=== PATIENT | female | born 1995 | race Caucasian/White ===

== ENCOUNTER 2017-09-02 22:29 | Emergency (ER) | payer SELFPAY ==
[~2017-09-02] VITALS: Ht 165.1 cm; Wt 100.8 kg
[~2017-09-02 22:29] MED LIST: KEFLEX500 MG PO
[2017-09-03 00:42] LABS: APPEARANCE SL.HAZY ((CLEAR)); BILIRUBIN NEGATIVE; BLOOD LARGE; COLOR YELLOW ((YELLOW)); GLUCOSE (STRIP) NEGATIVE; KETONES NEGATIVE; LEUKOCYTES TRACE; NITRITE NEGATIVE; PROTEIN (STRIP) NEGATIVE; SPECIFIC GRAVITY 1.016 (1.000-1.030); UROBILINOGEN 0.2 MG/DL (0.2-1.0)
[2017-09-03 00:44] LABS: BACTERIA RARE /HPF; EPITHELIAL CELLS 1+ /HPF; MUCUS TRACE /LPF; UCUL ADDED? NO; WHITE BLOOD CELLS 0-5 /HPF (0-5)
[2017-09-03] MEDS ORDERED: LIDOCAINE700 MG TP (01:39)
[2017-09-03] MEDS ORDERED: MOTRIN600 MG PO (01:39)
[2017-09-03] MEDS ORDERED: CIPRO500 MG PO (01:41)
[2017-09-03 01:50] VITALS: BP 127/84
== END 2017-09-03 02:55 | disposition home or self-care (01) ==
LOC: EME 22:29
PROVIDERS: Emergency Medicine
DX: N39.0 Urinary tract infection, site not specified (principal); N83.202 Unspecified ovarian cyst, left side; M54.5 Low back pain; Z88.1 Allergy status to other antibiotic agents
CPT/HCPCS: 74176; 81003; 99281; 99284

== ENCOUNTER 2017-11-18 21:06 | Emergency (ER) | payer OTHER ==
[~2017-11-18] VITALS: Ht 162.6 cm; Wt 97.6 kg
[~2017-11-18 21:06] MED LIST changes: +CIPRO500 MG PO; +LIDOCAINE700 MG TP; +MOTRIN600 MG PO
[2017-11-18 21:57] LABS: HEMATOCRIT 39.8 % (36.0-46.0); HEMOGLOBIN 13.2 G/DL (11.9-15.5); MCH 29.5 PG (29.0-34.0); MCHC 33.2 G/DL (30.0-36.0); MCV 88.8 FL (83-99); PLATELET COUNT 323 K/uL (156-360); RBC DIS.WIDTH-CV 12.3 % (11.8-14.6); RBC DIS.WIDTH-SD 40.2 % (39-53); RED BLOOD COUNT 4.48 M/uL (3.80-5.20); WHITE BLOOD COUNT 10.1 K/uL (4.1-10.2)
[2017-11-18 22:18] LABS: ALBUMIN 4.5 g/dL (3.2-4.8); CHLORIDE 107 mEq/L (99-109); SODIUM 137 mEq/L (136-147)
[2017-11-18 22:20] LABS: GLUCOSE 99 mg/dL (70-99)
[2017-11-18 22:21] LABS: TOTAL PROTEIN 7.7 g/dL (6.4-8.3)
[2017-11-18 22:22] LABS: TOTAL BILIRUBIN 0.5 mg/dL (0.0-1.0)
[2017-11-18 22:24] LABS: ALKALINE PHOSPHATASE 94 IU/L (3-129); CREATININE 0.7 mg/dL (0.6-1.3); GFR ESTIMATE (CALCULATED) > 59 mL/min/
[2017-11-18 22:25] LABS: UREA NITROGEN (BUN) 8 mg/dL (9-23)
[2017-11-18 22:26] LABS: AST (GOT) 18 IU/L (2-34)
[2017-11-18 22:27] LABS: ALT (GPT) 18 IU/L (3-49)
[2017-11-18 22:33] LABS: QUANTITATIVE HCG < 4.0 MIU/ML
[2017-11-19] MEDS ORDERED: FIORICET 50-301 EAC1 PO (05:13)
[2017-11-19] MEDS ORDERED: MECLIZINE HCL25 MG PO (05:13)
[2017-11-19 05:35] VITALS: BP 113/64
== END 2017-11-19 05:36 | disposition home or self-care (01) ==
LOC: EME 21:06
DX: R51 Headache (principal); R42 Dizziness and giddiness; R11.10 Vomiting, unspecified; M54.2 Cervicalgia; Z88.0 Allergy status to penicillin
CPT/HCPCS: 80053; 81003; 84702; 85027; 99281; 99285; J1200; J2765; J7030

== ENCOUNTER 2017-12-09 15:11 | Emergency (ER) | payer OTHER ==
[~2017-12-09] VITALS: Ht 167.6 cm; Wt 97.8 kg
[~2017-12-09 15:11] MED LIST changes: +FIORICET 50-301 EAC1 PO; +MECLIZINE HCL25 MG PO
[2017-12-09 15:44] VITALS: BP 138/72
== END 2017-12-09 17:46 | disposition home or self-care (01) ==
LOC: EME 15:11
DX: S40.012A Contusion of left shoulder, initial encounter (principal); M54.2 Cervicalgia; W10.9XXA Fall (on) (from) unspecified stairs and steps, initial encounter; Z88.0 Allergy status to penicillin
CPT/HCPCS: 72040; 73010; 73030; 99281; 99284

== ENCOUNTER 2018-01-06 21:20 | Emergency (ER) | payer OTHER ==
[~2018-01-06] VITALS: Ht 165.1 cm; Wt 100.8 kg
[2018-01-06 21:55] LABS: HEMATOCRIT 35.1 % (36.0-46.0); HEMOGLOBIN 11.7 G/DL (11.9-15.5); MCH 29.1 PG (29.0-34.0); MCHC 33.3 G/DL (30.0-36.0); MCV 87.3 FL (83-99); PLATELET COUNT 303 K/uL (156-360); RBC DIS.WIDTH-CV 13.2 % (11.8-14.6); RBC DIS.WIDTH-SD 42.2 % (39-53); RED BLOOD COUNT 4.02 M/uL (3.80-5.20); WHITE BLOOD COUNT 9.9 K/uL (4.1-10.2)
[2018-01-06 22:05] LABS: CHLORIDE 112 mEq/L (99-109); POTASSIUM 3.7 mEq/L (3.7-5.4); SODIUM 143 mEq/L (136-147)
[2018-01-06 22:06] LABS: GLUCOSE 105 mg/dL (70-99)
[2018-01-06 22:10] LABS: CREATININE 0.7 mg/dL (0.6-1.3); GFR ESTIMATE (CALCULATED) > 59 mL/min/
[2018-01-06 22:11] LABS: UREA NITROGEN (BUN) 8 mg/dL (9-23)
[2018-01-06 22:16] LABS: TROP-I INTERPRETATION NEGATIVE; TROPONIN-I < 0.01 ng/mL (0.0-0.30)
[2018-01-06 22:48] LABS: QUANTITATIVE HCG < 4.0 MIU/ML
[2018-01-06 23:33] LABS: APPEARANCE SL.HAZY ((CLEAR)); BILIRUBIN NEGATIVE; BLOOD NEGATIVE; COLOR YELLOW ((YELLOW)); GLUCOSE (STRIP) NEGATIVE; KETONES NEGATIVE; LEUKOCYTES TRACE; NITRITE NEGATIVE; PROTEIN (STRIP) NEGATIVE; SPECIFIC GRAVITY 1.015 (1.000-1.030); UROBILINOGEN 0.2 MG/DL (0.2-1.0)
[2018-01-06 23:37] LABS: BACTERIA NONE SEEN /HPF; EPITHELIAL CELLS 1+ /HPF; MUCUS TRACE /LPF; RED BLOOD CELLS 0-5 /HPF (0-5); UCUL ADDED? NO; WHITE BLOOD CELLS 0-5 /HPF (0-5)
[2018-01-07 00:14] VITALS: BP 122/70
[2018-01-07 08:04] LABS: THYROTROPIN (TSH) 4.8 MIU/L (0.4-5.5)
== END 2018-01-07 00:14 | disposition home or self-care (01) ==
LOC: EME 21:20
PROVIDERS: Physician Assistant
DX: R07.89 Other chest pain (principal); R42 Dizziness and giddiness; Z87.440 Personal history of urinary (tract) infections; Z88.0 Allergy status to penicillin
CPT/HCPCS: 71046; 80048; 81003; 84443; 84484; 84702; 85027; 93005; 99281; 99284